=== PATIENT | female | born 1940 | race Caucasian/White ===

== ENCOUNTER → 2022-02-16 | Outpatient (CLI) | payer MEDICARE, OTHER | LOC: HEART 5 13:12 | DX: I48.91 Unspecified atrial fibrillation (principal) ==

== ENCOUNTER → 2022-02-21 | Outpatient (CLI) | payer MEDICARE, OTHER | LOC: HEART 5 01-24 07:45 → NM 02-08 09:00 → HEART 5 08:21 | DX: I48.91 Unspecified atrial fibrillation (principal); R94.31 Abnormal electrocardiogram [ECG] [EKG]; R07.9 Chest pain, unspecified; E11.65 Type 2 diabetes mellitus with hyperglycemia; I10 Essential (primary) hypertension; R00.2 Palpitations; R06.02 Shortness of breath; I07.1 Rheumatic tricuspid insufficiency | CPT/HCPCS: 78452; A9502; J2785 ==

== ENCOUNTER → 2022-07-08 | Outpatient (CLI) | payer MEDICARE, OTHER ==
[~2022-07-08] MED LIST: ALLEGRA ALLERG180 MG PO; AMITRIPTYLINE H10 MG PO; ARTHRITIS PAIN650 M2 PO; CITALOPRAM HBR20 MG PO; COREG12.5 MG PO; CRANBERRY500 M2 PO; ELIQUIS5 MG PO; FISH OIL 1,0001 EACH PO; IPRATROPIU0.2 MG/1 M INH; IRBESARTAN-HCT1 EAC1 PO; JARDIANCE25 MG PO; KLONOPIN0.5 MG PO; LEVOTHYROXINE50 MC1 PO; LIORESAL TAB 1010 MG PO; MAGNESIUM400 M2 PO; MIRALAX17 GM PO; NORVASC2.5 MG PO; OMEPRAZOLE40 MG PO; PRAVASTATIN SOD80 MG PO; STOOL SOFTENER100 M1 PO; VAZALORE81 MG PO; VITAMIN B COMP1 EACH PO; VITAMIN C500 M4 PO; VITAMIN C500 MG PO; VITAMIN D-40010 MCG PO; VITAMIN D250 MCG PO; VITAMIN E400 UNI1 PO; [UNRECOGNIZED DRUG - OTHER] PO
== END ==
LOC: CATH 07:29 → EDSTATUS 07:30 → CATH 07:30
DX: I48.91 Unspecified atrial fibrillation (principal); I10 Essential (primary) hypertension; E03.9 Hypothyroidism, unspecified; R06.02 Shortness of breath
CPT/HCPCS: 93005